=== PATIENT | male | born 1935 | race Caucasian/White ===

== ENCOUNTER 2021-07-21 19:05 | Emergency (ER) | payer MEDICARE, MEDICAID, SELFPAY ==
[2021-07-21 19:33] VITALS: BP 164/92; PULSE 92; RESP 16; TEMP 36.6; O2SAT 93; BMI 25.0
--- NOTE | 2021-07-21 19:50 | CTR_ITS ---
PROCEDURE INFORMATION: Exam: CT Cervical Spine Without Contrast Exam date and time: 07/21/2021 7:50 PM Age: 85 years old Clinical indication: Injury or trauma; Blunt trauma; Injury details: Fall x 3 days ago TECHNIQUE: Imaging protocol: Computed tomography images of the cervical spine without contrast. Radiation optimization: All CT scans at this facility use at least one of these dose optimization techniques: automated exposure control; mA and/or kV adjustment per patient size (includes targeted exams where dose is matched to clinical indication); or iterative reconstruction. COMPARISON: CT head wo con* [id number] 07/21/2021 8:11 PM RADIATION DOSE METRICS: Total DLP (mGy-cm): 660.69 FINDINGS: Bones/joints: No acute fracture. Minimal grade 1 anterolisthesis of C3 on C4. Otherwise, normal alignment. Discs/Spinal canal/Neural foramina: No significant disc protrusion. No severe spinal canal stenosis. No significant neural foraminal narrowing. Lungs: Biapical scarring. Soft tissues: Unremarkable. Other findings: Right shoulder hemiarthroplasty noted. CT/CT cervical spin wo con* [id number] IMPRESSION: No acute findings. Radiation Dose CTDIVOL = (mGy): DLP = 660.69 (mGy-cm)
--- NOTE | 2021-07-21 19:50 | CTR_ITS ---
PROCEDURE INFORMATION: Exam: CT Head Without Contrast Exam date and time: 07/21/2021 7:50 PM Age: 85 years old Clinical indication: Injury or trauma; Blunt trauma (contusions or hematomas); Injury details: Fall x 3 days ago. Wound to the back of head. Weakness TECHNIQUE: Imaging protocol: Computed tomography of the head without contrast. Radiation optimization: All CT scans at this facility use at least one of these dose optimization techniques: automated exposure control; mA and/or kV adjustment per patient size (includes targeted exams where dose is matched to clinical indication); or iterative reconstruction. COMPARISON: No relevant prior studies available. RADIATION DOSE METRICS: Total DLP (mGy-cm): 913.09 FINDINGS: Brain: No hemorrhage. No cerebral edema. Moderate diffuse cerebral atrophy. No mass effect. Cerebral ventricles: No ventriculomegaly. Paranasal sinuses: Partially opacified maxillary and ethmoid sinuses. Mastoid air cells: Visualized mastoid air cells are well aerated. Bones/joints: Unremarkable. No acute fracture. Soft tissues: Unremarkable. CT/CT head wo con* [id number] IMPRESSION: No acute traumatic intracranial abnormality. Radiation Dose CTDIVOL = (mGy): DLP = 913.09 (mGy-cm)
[2021-07-21 20:12] VITALS: BP 151/104; PULSE 98; O2SAT 93
--- NOTE | 2021-07-21 20:22 | ED_ITS ---
HPI - Fall General: Chief Complaint: Fall Stated Complaint: FALL Time Seen by Provider: 07/21/21 20:01 History of Present Illness: HPI Narrative: Patient is an 85-year-old male comes to the ED via ambulance due to fall. Family said that patient had a fall approximately 3 days ago. Unknown loss of consciousness. Here in the ED patient is complaining of having a productive cough and some wheezing that is been going on for over a week. Patient says he does not have any chest pain or feels short of breath. Denies any other complaints or injuries. Denies any hemoptysis, abdominal pain, nausea/vomiting, bladder or bowel symptoms. Associated symptoms-after fall: Reports headache(s); Denies abdominal pain, chest pain, hematuria or neck pain Review of Systems Const: Denies: fever(s), chills or fatigue Eyes: Denies: change in vision or eye discomfort ENMT: Denies: throat pain, odynophagia, nasal discharge or nasal congestion Card: Denies: chest pain, palpitations, edema, swelling of feet/ankles, dyspnea on exertion or orthopnea Resp: Reports: productive cough and wheezing; Denies: dyspnea or non-productive cough GI: Denies: abdominal pain, nausea, vomiting, diarrhea, constipation or hematochezia : Denies: flank pain, difficulty urinating, dysuria or hematuria Musc: Denies: neck pain, back pain or extremity swelling Skin/Breast: Denies: rash or new lesions Neuro: Reports: headache(s); Denies: numbness in extremities or weakness in extremities Physical Exam Const: COMMON NORMALS: no acute distress, patient oriented x3 and alert GENERAL APPEARANCE: cooperative and comfortable HENMT: COMMON NORMALS: normocephalic HEAD & SCALP: normocephalic and abrasion (Small superficial abrasions on right frontal/parietal) right frontal Head abrasion size: 0.5 cm; no Flynn's sign and no raccoon eyes MOUTH: Normal oral and palatal mucosa present THROAT: posterior oropharynx normal and uvula midline Eye: COMMON NORMALS: Equal, round and reactive pupils present, EOMs intact bilaterally and conjunctivae normal CONJUNCTIVA: Yes conjunctivae normal PUPIL: Yes Equal, round and reactive pupils present Neck/C-Spine: COMMON NORMALS: supple GENERAL: Yes normal visual inspection Resp: COMMON NORMALS: normal respiratory effort, No retractions and No use of accessory muscles AUSCULTATION: wheezes expiratory wheezes (bilaterally throughout) and throughout Cardio: COMMON NORMALS: regular rate, regular rhythm, S1 normal heart sound present, S2 normal heart sound present, No gallops present (Cardio), No clicks present (Cardio), No murmurs present (Cardio) and Peripheral pulses 2+ throughout RATE: regular rate RHYTHM: regular rhythm HEART SOUNDS: S1 normal heart sound present and S2 normal heart sound present PERIPHERAL PULSES: Peripheral pulses 2+ throughout GI: COMMON NORMALS: Normal to inspection, nondistended, normoactive bowel sounds present, Soft to palpation, non-tender and no masses PALPATION: Yes Soft to palpation : COMMON NORMALS: Yes no CVA tenderness BLADDER/KIDNEY EXAM: Yes no CVA tenderness Back/Pelvis: COMMON NORMALS: no CVA tenderness Extremity: COMMON NORMALS: normal to inspection Neuro: COMMON NORMALS: patient oriented x3, CN's II-XII intact bilaterally, moves all extremities, no focal motor deficits and no sensory deficits noted SENSORIUM/ORIENTATION: Yes alert SENSORY EXAM: Yes extremities (intact to soft touch) MOTOR EXAM: 5/5 motor strength present throughout Skin: GENERAL SKIN EXAM: dry skin Course Consultations: Consultation #1: I had RT come here to the ED to perform a home O2 eval. After evaluation patient does not qualify for any home oxygen. Vital Signs: Vital signs: Vital Signs Temperature 97.8 F 07/21/21 19:33 Pulse Rate 78 07/22/21 00:28 Respiratory Rate 18 07/22/21 00:28 Blood Pressure 165/98 07/21/21 23:56 Pulse Oximetry 96 07/22/21 00:28 MDM - Fall MDM Narrative: Medical decision making narrative: Patient is a 85-year-old male comes to the ED after having a fall 3 days ago. He denies any loss of consciousness. He does report having a cough and some wheezing. Denies any chest pain or shortness of breath. Patient's lung do sound wheezy upon auscultation. Vitals are stable, but patient's O2 saturation on room air sits around 93 to 95%. Labs are unremarkable. Chest x-ray shows no acute findings. CT of head and cervical spine showed no acute fractures or findings. I placed order with respiratory therapy to come to home O2 eval and patient did not qualify for any home oxygen. Patient was diagnosed with fall and bronchitis. He was given a DuoNeb breathing treatment here in the ED and his wheezing did improve. He was also given a dose of Solu-Medrol and azithromycin while here in the ED. He was discharged home with a prescription for Medrol Dosepak, azithro mycin and an albuterol inhaler. He was told to follow-up with his PCP in 7 to 10 days for reevaluation. Return to ED precautions given. Patient understood and agreed with plan. Lab Data: Attestation: I reviewed the patient's lab results. Labs: Lab Results 07/21/21 07/21/21 19:15 19:15 WBC 8.4 10^3/uL 10^3/ uL (4.0-10.0) RBC 4.97 10^6/uL 10^6 /uL (4.1-5.3) Hgb 14.0 g/dL g/dL (11.7-16.6) Hct 44.4 % % (42.0-52.0) MCV 89.3 fl fl (80-94) MCH 28.2 pg pg (28.0-34.0) MCHC 31.5 g/dL g/dL (30.0-36.0) RDW 14.9 % % (12.1-15.1) Plt Count 337 10^3/cmm 10^3 /cmm (130-400) MPV 9.2 fL fL (7.4-10.4) Neut % (Auto) 64.3 % % Lymph % (Auto) 23.5 % % [place] % (Auto) 8.9 % % Eos % (Auto) 1.8 % % Baso % (Auto) 0.9 % % Neut # (Auto) 5.42 10^3/uL 10^3 /uL (1.8-7.7) Lymph # (Auto) 2.0 10^3/uL 10^3/ uL (0.8-4.8) [place] # (Auto) 0.8 10^3/uL 10^3/ uL (0.2-0.9) Eos # (Auto) 0.2 10^3/uL 10^3/ uL (0.0-0.8) Baso # (Auto) 0.1 10^3/uL 10^3/ uL (0.0-0.1) Nucleated RBC % (a uto) 0 % % Nucleated RBCs # 0.0 /100WBC /100W BC Sodium 141 mmol/L mmol/L (136-145) Potassium 4.2 mmol/L mmol/L (3.5-5.1) Chloride 103 mmol/L mmol/L (98-107) Carbon Dioxide 27 mmol/L mmol/L (22-29) Anion Gap 15.2 (5-19) BUN 18 mg/dL mg/dL (8-23) Creatinine 1.0 mg/dL mg/dL (0.7-1.2) GFR Calculation Not Reportable Glucose 100 mg/dL mg/dL (65-115) Calculated Osmolal ity 294 mOsm/kg mOsm/ kg (285-295) Calcium 9.4 mg/dL mg/dL (8.5-10.5) Total Bilirubin 0.4 mg/dL mg/dL (0.15-1.2) AST 25 U/L U/L (0-40) ALT 21 U/L U/L (0-41) Alkaline Phosphata se 85 IU/L IU/L (40-130) Total Protein 7.6 g/dL g/dL (6.6-8.7) Albumin 3.9 g/dL g/dL (3.5-5.2) Globulin 3.7 g/dL g/dL (1.3-4.6) Imaging Data^: CT Head: Attestation: I personally reviewed and interpreted this imaging study as follows: Radiologist's impression: [address] [address] [address] Scan Report Signed Patient: Zach Barger Unit #: [id number] : 1935 Age/Sex: 85 / M ADM Date: 07/21/21 Loc: ER Room/Bed: Attending Dr: Ordering Provider/Ordering MD: Julius Souza MD Date of Service: 07/21/21 Procedure(s): CT cervical spin wo con* [id number] Accession Number(s): [id number] Report Number: [id number] PROCEDURE INFORMATION: Exam: CT Cervical Spine Without Contrast Exam date and time: 07/21/2021 7:50 PM Age: 85 years old Clinical indication: Injury or trauma; Blunt trauma; Injury details: Fall x 3 days ago TECHNIQUE: Imaging protocol: Computed tomography images of the cervical spine without contrast. Radiation optimization: All CT scans at this facility use at least one of these dose optimization techniques: automated exposure control; mA and/or kV adjustment per patient size (includes targeted exams where dose is matched to clinical indication); or iterative reconstruction. COMPARISON: CT head wo con* [id number] 07/21/2021 8:11 PM RADIATION DOSE METRICS: Total DLP (mGy-cm): 660.69 FINDINGS: Bones/joints: No acute fracture. Minimal grade 1 anterolisthesis of C3 on C4. Otherwise, normal alignment. Discs/Spinal canal/Neural foramina: No significant disc protrusion. No severe spinal canal stenosis. No significant neural foraminal narrowing. Lungs: Biapical scarring. Soft tissues: Unremarkable. Other findings: Right shoulder hemiarthroplasty noted. CT/CT cervical spin wo con* [id number] IMPRESSION: No acute findings. Radiation Dose CTDIVOL = (mGy): DLP = 660.69 (mGy-cm) Dictated By: Ruben Johnson DO Signed By: Ruben Johnson DO Signed Date/Time: 07/21/212035 DD/ [address]: Attestation: I personally reviewed and interpreted this imaging study as follows: Radiologist's impression: [address] [address] [address] Scan Report Signed Patient: Zach Barger Unit #: [id number] : 1935 Age/Sex: 85 / M ADM Date: 07/21/21 Loc: ER Room/Bed: Attending Dr: Ordering Provider/Ordering MD: Julius Souza MD Date of Service: 07/21/21 Procedure(s): CT head wo con* [id number] Accession Number(s): [id number] Report Number: [id number] PROCEDURE INFORMATION: Exam: CT Head Without Contrast Exam date and time: 07/21/2021 7:50 PM Age: 85 years old Clinical indication: Injury or trauma; Blunt trauma (contusions or hematomas); Injury details: Fall x 3 days ago. Wound to the back of head. Weakness TECHNIQUE: Imaging protocol: Computed tomography of the head without contrast. Radiation optimization: All CT scans at this facility use at least one of these dose optimization techniques: automated exposure control; mA and/or kV adjustment per patient size (includes targeted exams where dose is matched to clinical indication); or iterative reconstruction. COMPARISON: No relevant prior studies available. RADIATION DOSE METRICS: Total DLP (mGy-cm): 913.09 FINDINGS: Brain: No hemorrhage. No cerebral edema. Moderate diffuse cerebral atrophy. No mass effect. Cerebral ventricles: No ventriculomegaly. Paranasal sinuses: Partially opacified maxillary and ethmoid sinuses. Mastoid air cells: Visualized mastoid air cells are well aerated. Bones/joints: Unremarkable. No acute fracture. Soft tissues: Unremarkable. CT/CT head wo con* [id number] IMPRESSION: No acute traumatic intracranial abnormality. Radiation Dose CTDIVOL = (mGy): DLP = 913.09 (mGy-cm) Dictated By: Ruben Johnson DO Signed By: Ruben Johnson DO Signed Date/Time: 07/21/212031 DD/ 49 CXR: Attestation: I personally reviewed and interpreted this imaging study as follows: Radiologist's impression: [address] [address] XRay Report Signed Patient: Zach Barger Unit #: [id number] : 1935 Age/Sex: 85 / M ADM Date: 07/21/21 Loc: ER Room/Bed: Attending Dr: Ordering Provider/Ordering MD: Nima Perrin Date of Service: 07/21/21 Procedure(s): XR chest 1V portable [id number] Accession Number(s): [id number] Report Number: [id number] PROCEDURE INFORMATION: Exam: XR Chest Exam date and time: 07/21/2021 8:44 PM Age: 85 years old Clinical indication: Wheezing TECHNIQUE: Imaging protocol: XR of the chest. Views: 1 view. COMPARISON: CT cervical spin wo con* [id number] 07/21/2021 8:13 PM FINDINGS: Lungs: No consolidation. Mild biapical scarring. Pleural spaces: Unremarkable. No pleural effusion. No pneumothorax. Heart/Mediastinum: Unremarkable. No cardiomegaly. Bones/joints: Right shoulder hemiarthroplasty noted. Rotator cuff anchor suture noted in the left humeral head. XR/XR chest 1V portable [id number] IMPRESSION: No acute findings. Radiation Dose CTDIVOL = (mGy): DLP = (mGy-cm) Dictated By: Ruben Johnson DO Signed By: Ruben Johnson DO Signed Date/Time: 07/21/212126 DD/ 43 Discharge Plan Discharge Patient Disposition: Home Clinical Impression: Bronchitis Fall as cause of accidental injury at home as place of occurrence Qualifiers: Encounter type: initial encounter Qualified Code(s): W19.XXXA - Unspecified fall, initial encounter Condition: Stable Prescriptions: New methylprednisolone 4 mg tablets,dose pack See Rx Instructions .ROUTE .COMPLEX Qty: 21 RF: 0 azithromycin 250 mg tablet 250 mg PO DAILY 5 Days Qty: 5 RF: 0 albuterol sulfate 90 mcg/actuation HFA aerosol inhaler 2 inh inhalation Q6H PRN (Reason: shortness of breath or wheezing) Qty: 8.5 RF: 0 Discharge Orders: Discharge ED (Routine); Ordered 07/21/21 Ordered By: Nima Perrin Referrals: Sylvie Martin MD [Primary Care Provider] - Discharge Diet: Regular Discharge Activity: Increase activity as tolerated Patient Instructions: Bronchitis (Acute) - Adult, Fall Prevention (ED) Activity Restrictions/Additional Instructions: Follow-up with medical provider as directed in 5-7 days for reevaluation. Take medications as prescribed. Return to the ER or your medical provider if condition worsens. Please read and understand discharge instructions. Thank you for choosing [facility] for your healthcare needs today. Please realize this is an emergency room and that we are providing you with a medical screening exam and this may not be complete and all inclusive of all the testing and or work up that you may need to determine your ailment or severity of your illness. It is very important that you follow up as instructed or that you return to the Emergency Department should you have concerns or if your condition changes or worsens in any way. 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
--- NOTE | 2021-07-21 20:44 | XRR_ITS ---
PROCEDURE INFORMATION: Exam: XR Chest Exam date and time: 07/21/2021 8:44 PM Age: 85 years old Clinical indication: Wheezing TECHNIQUE: Imaging protocol: XR of the chest. Views: 1 view. COMPARISON: CT cervical spin wo con* [id number] 07/21/2021 8:13 PM FINDINGS: Lungs: No consolidation. Mild biapical scarring. Pleural spaces: Unremarkable. No pleural effusion. No pneumothorax. Heart/Mediastinum: Unremarkable. No cardiomegaly. Bones/joints: Right shoulder hemiarthroplasty noted. Rotator cuff anchor suture noted in the left humeral head. XR/XR chest 1V portable [id number] IMPRESSION: No acute findings. Radiation Dose CTDIVOL = (mGy): DLP = (mGy-cm)
[2021-07-21 21:08] VITALS: PULSE 95; RESP 20; O2SAT 93
[2021-07-21] MEDS: ipratropium-albuterol 3 mL Neb 6 ML INHALATION (21:08)
--- NOTE | 2021-07-21 21:23 | PC.NURSE ---
THIS NURSE WENT TO CHECK ON PATIENT. PATIENT UP AT BEDSIDE COUNTING CHANGE. NURSE REDIRECTED PATIENT AND PUT PATIENT BACK IN BED.
[2021-07-21 21:24] VITALS: BP 176/113
[2021-07-21 21:55] LABS: Basophils # 0.1 10^3/uL (0.0-0.1); Basophils % 0.9 %; Eosinophils # 0.2 10^3/uL (0.0-0.8); Eosinophils % 1.8 %; Hematocrit 44.4 % (42.0-52.0); Lymphocytes % 23.5 %; Mean Corpuscular HGB Conc 31.5 g/dL (30.0-36.0); Mean Corpuscular Hemoglobin 28.2 pg (28.0-34.0); Mean Corpuscular Volume 89.3 fl (80-94); Mean Platelet Volume 9.2 fL (7.4-10.4); Monocytes # 0.8 10^3/uL (0.2-0.9); Monocytes % 8.9 %; Neutrophils # 5.42 10^3/uL (1.8-7.7); Neutrophils % 64.3 %; Nucleated Red Blood Cells % 0 %; Platelet Count 337 10^3/cmm (130-400); Red Blood Count 4.97 10^6/uL (4.1-5.3); Red Cell Distribution Width 14.9 % (12.1-15.1); White Blood Count 8.4 10^3/uL (4.0-10.0)
[2021-07-21 22:02] VITALS: O2SAT 90; O2SAT 92
[2021-07-21 22:05] LABS: Alanine Aminotransferase 21 U/L (0-41); Albumin Level 3.9 g/dL (3.5-5.2); Alkaline Phosphatase 85 IU/L (40-130); Anion Gap 15.2 (5-19); Aspartate Amino Transferase 25 U/L (0-40); Blood Urea Nitrogen 18 mg/dL (8-23); Calcium 9.4 mg/dL (8.5-10.5); Carbon Dioxide 27 mmol/L (22-29); Chloride 103 mmol/L (98-107); Globulin 3.7 g/dL (1.3-4.6); Glucose 100 mg/dL (65-115); Osmolality Calculated 294 mOsm/kg (285-295); Potassium 4.2 mmol/L (3.5-5.1); Sodium 141 mmol/L (136-145); Total Bilirubin 0.4 mg/dL (0.15-1.2); Total Protein 7.6 g/dL (6.6-8.7)
[2021-07-21] MEDS: azithromycin 250 mg Tablet 500 MG PO (22:31)
[2021-07-21] MEDS: HYDROcodone-acetaminophen 5-325 mg Tablet 1 TAB PO (22:31)
[2021-07-21 23:56] VITALS: BP 165/98; PULSE 96; RESP 20; O2SAT 95
[2021-07-22 00:28] VITALS: PULSE 78; RESP 18; O2SAT 96
== END 2021-07-22 00:30 | disposition home or self-care (01) ==
PROVIDERS: Emergency Provider Physician Assistant; PCP Emergency Medicine
DX: J40 Bronchitis, not specified as acute or chronic (principal); W19.XXXA Unspecified fall, initial encounter
CPT/HCPCS: 70450; 71045; 72125; 80053; 85025; 94640; 96372; 99284; J2930; Q0144